=== PATIENT | male | born 1965 | race Caucasian/White ===

== ENCOUNTER 2020-06-13 14:22 | Emergency (ER) | payer OTHER ==
[~2020-06-13] VITALS: Ht 185.4 cm; Wt 103.9 kg
[2020-06-13] MEDS ORDERED: LIPITOR10 MG PO (14:32)
[2020-06-13] MEDS ORDERED: NORVASC 2.5 MG2.5 M1 PO (14:33)
[2020-06-13 15:32] LABS: ABSOLUTE BASOPHILS 0.1 thou/uL (0.0-0.2); ABSOLUTE EOSINOPHILS 0.3 thou/uL (0.0-0.7); ABSOLUTE LYMPHOCYTES 2.4 thou/uL (0.8-5.3); ABSOLUTE MONOCYTES 0.8 thou/uL (0.0-1.2); ABSOLUTE NEUTROPHILS 5.3 thou/uL (1.6-8.1); BASOPHILS 0.6 %; EOSINOPHILS 2.9 %; HEMATOCRIT 36.9 % (42.0-52.0); HEMOGLOBIN 12.7 gm/dL (14.0-18.0); LYMPHOCYTES 27.1 %; MCH 29.7 pg (26.0-34.0); MCHC 34.5 g/dL (28.0-37.0); MCV 86.1 fL (80.0-100.0); MONOCYTES 9.5 %; MPV 10.7 fl. (7.2-11.1); NUCLEATED RBCS 0 /100WBC; PLATELET COUNT* 132 thou/uL (150-400); POLYS 59.9 %; RBC 4.29 mil/uL (4.50-6.00); RDW-CV 13.7 % (10.5-14.5); WBC 8.9 thou/uL (4.0-11.0)
[2020-06-13 15:41] LABS: CALCIUM 8.8 mg/dL (8.5-10.1); CREATININE 1.1 mg/dL (0.6-1.3); POTASSIUM 3.5 mmol/L (3.5-5.1)
[2020-06-13 15:51] LABS: ALBUMIN 3.9 g/dL (3.4-5.0); TOTAL BILIRUBIN 0.3 mg/dL (<0.1-1.0); TOTAL PROTEIN 7.5 g/dL (6.4-8.2)
[2020-06-13 15:54] LABS: PROTIME 10.7 Seconds (9.20-11.50)
[2020-06-13 19:12] VITALS: BP 154/94
--- NOTE | 2020-06-14 11:29 | EKG ---
[place] [address] ELECTROCARDIOGRAM REPORT Name: HUNTER MARISCAL Room: [facility]#: [id number] Admission: 06/13/20 Attend Phys: Discharge: 06/13/20 Date of : 61 Date of Service: 06/13/20 1429 Report #: [id number] THIS REPORT FOR: //name// [facility] ED Test Date: 2020-06-13 Test Time: 14:29:03 Pat Name: HUNTER MARISCAL Department: Room: Gender: Sales Representative Advertising: [place] : 1965 Requested By: Magalie Vigil Order Number: [id number] MD: Darryn Pearson Measurements Intervals Alpha Rate: 58 P: 34 AK: 181 QRS: -7 QRSD: 101 T: 31 QT: 434 QTc: 427 Interpretive Statements Sinus rhythm No previous ECG available for comparison Electronically Signed On 06-14-2020 11:29:48 CUSTOM GRINDER by Darryn Pearson [email or web address] <ELECTRONICALLY SIGNED> By: Darryn Pearson MD, [facility] 06/14/20 1129 1429 1429 Darryn Pearson MD, FACC /EPI
== END 2020-06-13 19:13 | disposition home or self-care (01) ==
LOC: M.ERS 14:22
PROVIDERS: Personal Emergency Response Attendant
DX: R07.89 Other chest pain (principal); R91.8 Other nonspecific abnormal finding of lung field; I10 Essential (primary) hypertension; Z87.891 Personal history of nicotine dependence

== ENCOUNTER → 2020-07-14 | Outpatient (CLI) | payer OTHER ==
[~2020-07-14] MED LIST: LIPITOR10 MG PO; NORVASC 2.5 MG2.5 M1 PO
--- NOTE | 2020-07-14 17:49 | CARDNUC ---
[place] [address] CARDIAC NUCLEAR IMAGING REPORT Name: NITESH MARISCAL Room: [facility]#: [id number] Admission: 07/14/20 Attend Phys: Maria M Pathak, Discharge: Date of : 61 Date of Service: 07/14/20 1749 Report #: [id number] THIS REPORT FOR: cc: Rolando Mckeon MD, Dean L. MD Liston, Michael J. MD [facility] ~ APPROVED REPORT Study performed: 07/14/2020 09:58:15 Exam: Nuclear Stress Test Indication: Chest pain. Patient Location: Out-Patient Stress Tech: Araceli Hager Stress Nurse: Larisa Tadeo R.N. Ht: 6 ft 0 in Wt: 230 lbs BSA: 2.26 m2 BMI: 31.19 Medical History Medical History: Chest pain, Sinus Bradycardia, HLD, HTN, past smoker. Medications: Amlodipine, Atorvastatin. Allergies: No known drug allergies Cardiac Risk Factors: Age, FHX of CAD, HTN, Hyperlipidemia, Past Smoker, Sinus Bradycardia. Previous Cardiac Procedures: None Pretest Chest Pain Characteristics: No chest pain Exercise History: Physically active Physical Disabilities: None noted. Meds Held (24 hrs): None Stress Test Details Stress Test: Exercise stress testing was performed using a Ricci protocol. HR Resting HR: 56 bpm Max Heart Rate (APMHR): 163 bpm Max HR Achieved: 146 bpm Target HR (85% APMHR): 138 bpm % of APMHR: 89 Recovery HR: 80 bpm HR response to stress: Normal HR response to stress BP Resting BP: 142/[place] [address] CARDIAC NUCLEAR IMAGING REPORT Name: NITESH MARISCAL Izabel Room: [facility]#: [id number] Admission: 07/14/20 Attend Phys: Maria M Pathak, Discharge: Date of : 61 Date of Service: 07/14/20 1749 Report #: [id number] Max BP: 249/96 mmHg BP response to stress: Abnormal hypertensive response to stress. ECG Resting ECG: Sinus Rhythm Stress ECG: Sinus Tachycardia ST Change: None Arrhythmia: None Recovery ECG: Sinus Rhythm Recovery ST Change: None Recovery Arrhythmia: None Clinical Reason for Termination: Completed protocol, Maximal effort, Patient Request. Stress Symptoms: Dyspnea, Lightheaded. Exercise duration: 9 min 59 sec Exercise capacity: 10.69 METs Overall Exercise Capacity for Age: Borderline Normal to Superior. Patient had no significant cardiac symptoms with standard Ricci protocol exercise. Nurse Comments A 55 year old male presented for a Treadmill Nuclear Stress Test r/t chest pain. Treadmill tolerated through Stage 3. Recovery presented with some spontaneous tachycardia for 23 beats while patient was sitting then converted back to sinus rhythm, asymptomatic. Patient was stable and stated he felt good when escorted to Nuclear Medicine for imaging. Exercise capacity borderline Normal to Superior. Stress ECG Conclusion The baseline twelve-lead EKG shows sinus rhythm without significant ST segment or T wave changes. EKGs obtained during and post exercise show sinus rhythm and sinus tachycardia with no significant ST segment or T wave changes when compared to baseline. There were no stress-induced arrhythmias. NM EXAM: Myocardial Perfusion REST/STRESS Resting Data Rest SPECT myocardial perfusion imaging was performed in supine position 30 minutes following the intravenous injection of 10.0 mCi of Tc-99[place] [address] CARDIAC NUCLEAR IMAGING REPORT Name: NITESH MARISCAL Izabel Room: [facility]#: [id number] Admission: 07/14/20 Attend Phys: Maria M Pathak, Discharge: Date of : 61 Date of Service: 07/14/20 1749 Report #: [id number] Time of rest injection: 08:00 The images were gated to evaluate regional wall motion and calculate left ventricular ejection fraction. Administration Route: IV Administration Site: Right AC Exercise Stress At peak stress, the patient was injected intravenously with 32.0mCi of Tc-99m Sestamibi. Time of stress injection: 10:00 Administration Route: IV Administration Site: Right AC Heart Rate at time of stress injection: 140 bpm. Patient continued to exercise for 1 minute(s). Gated Stress SPECT was performed 30 minutes after stress injection. The images were gated to evaluate regional wall motion and calculate left ventricular ejection fraction. Prone imaging was performed. Study Quality Study: Good Artifact: No artifact Study Data At rest, the left ventricular ejection fraction was 50%.. Post stress, the left ventricular ejection was 62%.. TID = 0.92. Perfusion Perfusion images show no defect to suggest infarct or ischemia. Wall Motion Normal left ventricular wall motion. Nuclear Conclusion ECG Findings: negative for ischemia Clinical Findings: negative for ischemia Nuclear Findings: negative for ischemia Exercise Capacity: normal Left Ventricular Function: normal Risk Study: low Myocardial perfusion images show no defect to suggest infarct or ischemia. Left ventricular systolic function appears normal on gated studies. [place] [address] CARDIAC NUCLEAR IMAGING REPORT Name: NITESH MARISCAL Room: [facility]#: [id number] Admission: 07/14/20 Attend Phys: Maria M Pathak, Discharge: Date of : 61 Date of Service: 07/14/20 1749 Report #: [id number] <Conclusion> The baseline twelve-lead EKG shows sinus rhythm without significant ST segment or T wave changes. EKGs obtained during and post exercise show sinus rhythm and sinus tachycardia with no significant ST segment or T wave changes when compared to baseline. There were no stress-induced arrhythmias. <ELECTRONICALLY SIGNED> By: Nitesh Thomas MD, FACC 07/14/201748 48 48 Nitesh Thomas MD, FACC /INF
== END ==
LOC: M.NUC 06-21 17:03
PROVIDERS: ATTEND Internal Medicine
DX: I10 Essential (primary) hypertension (principal); R07.9 Chest pain, unspecified